=== PATIENT | female | born 2000 | race Caucasian/White ===

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

== ENCOUNTER 2022-10-11 15:57 | Emergency (ER) | payer OTHER, SELFPAY ==
--- NOTE | ~2022-10-11 | US_ITS ---
US OB <=14 wk fetus w TV 10/11/2022 18:15 Indication: Pelvic pain. Vaginal bleeding during . Procedure: High-resolution Limited obstetrical ultrasound utilizing transabdominal and transvaginal t echnique Comparison: No prior studies for comparison. Findings: No intrauterine is identified. There is a large complex area of soft tissue in th e lower uterine segment/cervical region. Uterus measures 6.5 x 4.1 x 4.3 cm. Right ovary measures 4.6 x 3.2 x 2.1 cm and contains 2 cysts, largest measuring approximately 2.2 cm. Left ovary is unremarkable measuring 3.3 x 2.5 x 1.8 cm. Normal Doppler signal in both ovaries. Impression: 1: Large complex predominantly hyperechoic area of soft tissue in the lower uterine segment/cervix. N o evidence for intrauterine . Findings suspicious for failed with partial passage of retained products of conception. Recommend follow-up with serial quantitative beta-hCG levels and ultrasound as clinically indicated. Reviewed, dictated and finalized at location A. Impression: 1: Large complex predominantly hyperechoic area of soft tissue in the lower [place] segment/cervix. No evidence for intrauterine . Findings suspiciou s for failed with partial passage of retained products of conception. Recommend follow-up with serial quantitative beta-hCG levels and ultrasound as clinically indicated.
[2022-10-11 16:02] VITALS: BP 132/72; PULSE 84; RESP 18; TEMP 36.6; O2SAT 100
--- NOTE | 2022-10-11 16:20 | ED.PREGNANCY ---
HPI - General Chief complaint: Vaginal Bleeding Stated complaint: vaginal bleeding-positive preg test Time Seen by Provider: 10/11/22 16:08 History of Present Illness HPI Narrative: Patient is a 22-year-old G0 female here for evaluation of vaginal bleeding x 3 weeks. patient states her menstrual cycle was due September 28 but did not come until September 30. Since then, patient has had continued vaginal bleeding and has been passing blood clots. States is not abnormal for her because she has a history of PCOS, but over the past several days she has had lower pelvic cramping that is more intense than usual when she started to bleed heavier. She took a home test that was positive. She has never been in the past. She took a 200mg ibuprofen without relief of her symptoms. She denies any weakness, lightheadedness, nausea, vomiting, fevers, chills, urinary symptoms. Her LEAN CONSULTANT is Dr. Hyde, follows for irregular cycles. Related Data Home Medications Medication Instructions Recorded Confirmed ergocalciferol (vitamin D2) 1,250 09/12/20 mcg (50,000 unit) capsule etonogestrel 0.12 mg-ethinyl vag ring vaginal 09/12/20 estradiol 0.015 mg/24 hr vaginal ring Allergies Allergy/AdvReac Type Severity Reaction Status Date / Time cephalexin [From Keflex] Allergy Rash Verified 10/11/22 15:58 Penicillins Allergy Unknown Verified 10/11/22 15:58 Review of Systems Review of Systems: Gen: Denies fevers or chills Eyes: Denies eye pain or visual change ENT: Denies congestion Respiratory: Denies shortness of breath or cough CV: Denies chest pain or palpitations GI: Denies abdominal pain nausea, emesis or diarrhea : Reports vaginal bleeding and pelvic pain Musculoskeletal: Denies back pain or muscle pain Neuro: Denies numbness, tingling, weakness or focal weakness Skin: Denies rash Except as documented, all other systems reviewed and negative [facility] Past Medical History Medical History C. difficile colitis Smoker Surgical History Surgical History No pertinent past surgical history Family History Family History Father Alive and well Mother Alive and well Social History Social History Smoking packs per day: 0.25 Smoking cigarettes per day: 5.0 Years smoked: 1 Smoking pack-years: 0.25 Smoking status: Current every day smoker Tobacco type: cigarettes Second hand tobacco smoke exposure: Yes Alcohol intake: current Drinks per week: 4 Alcohol use details: social Substance use: current Substance use type: marijuana Living arrangements: with family Occupation/Education: student Gender identity (if verbalized by the patient): Female Sexual Orientation (if Verbalized by the Patient): Straight or Heterosexual Exam Narrative: APPEARANCE: Well appearing, no pain in distress, well-nourished. Head: Normocephalic and atraumatic. EYES: PERRLA/EOMI, conjunctivae clear NOSE: No nasal drainage EARS: External ear normal in appearance THROAT: Oropharynx is clear. Mucous membranes are moist. NECK: Supple. No adenopathy, no masses. RESPIRATORY: Airway patent, respirations nonlabored. Clear to auscultation bilaterally, no rales, rhonchi, wheezing. CARDIOVASCULAR: Regular rate and rhythm without murmurs, rubs, or gallops. : cervix is closed, moderate amount of bright red blood in the vault with very small blood clots evacuated, no brisk bleed or hemorrhage ABDOMINAL: Normoactive bowel sounds. Soft, nontender, nondistended. No rebound tenderness or guarding. MUSCULOSKELETAL: Extremities are warm and well-perfused. Moves all extremities well. No edema. NEURO: Normal speech. No focal neurologic deficits. SKIN: Skin is warm and dry. No rashes. PSYCHIATRIC: Normal affect/mood.. Course
[2022-10-11 16:44] LABS: Basophils Absolute Auto 0.1 K/mm3 (0.0-0.1); Basophils Percent Auto 0.8 % (0.2-1.2); Eosinophils Absolute Auto 0.1 K/mm3 (0-0.3); Eosinophils Percent Auto 1.7 % (0-4.4); Hematocrit 34.6 % (37.0-47.0); Hemoglobin 11.5 g/dL (12.0-15.0); Immature Granulocyte Absolute 0.05 K/mm3 (0.00-0.031); Immature Granulocyte Percent A 0.7 % (0-0.5); Lymphocytes Absolute Auto 2.16 K/mm3 (0.9-3.2); Lymphocytes Percent Auto 29.9 % (18.3-44.2); Mean Corpuscular HGB Conc 33.2 g/dl (32-36); Mean Corpuscular Hemoglobin 30.4 pg (26-34); Mean Corpuscular Volume 91.5 fl (80-100); Mean Platelet Volume 10.2 fl (7.4-10.4); Monocytes Absolute Auto 0.6 K/mm3 (0.1-0.6); Monocytes Percent Auto 7.8 % (2.6-8.5); Neutrophils Absolute Auto 4.3 K/mm3 (1.3-6.7); Neutrophils Percent Auto 59.1 % (45.5-73.1); Platelet Count Result 279 k/mm3 (150-375); Red Blood Count 3.78 M/mm3 (4.2-5.4); Red Cell Distribution Width 13.1 % (11.5-14.5); White Blood Count 7.2 K/mm3 (4.5-10.0)
[2022-10-11 16:55] LABS: Alanine Aminotransferase 14 U/L (6-35); Alkaline Phosphatase 65 U/L (38-126); Anion Gap 6 mmol/L (8-16); Aspartate Amino Transferase 20 U/L (14-36); Bilirubin,Total 0.4 mg/dL (0.2-1.3); Blood Urea Nitrogen 9 mg/dL (7-17); Calcium 8.7 mg/dL (8.4-10.2); Carbon Dioxide 26 mmol/L (22-30); Chloride 107 mmol/L (98-107); Estimated CRCL calculation 109 ml/min; Estimated Glomerular Filt Rate > 60; Glucose 84 mg/dL (65-110); Potassium 3.6 mmol/L (3.4-5.0); Sodium 139 mmol/L (137-145)
--- NOTE | 2022-10-11 17:16 | PC.NURSE ---
xray called to notify ultrasound for possible ectopic
[2022-10-11 19:59] VITALS: BP 111/74; PULSE 78; RESP 18; O2SAT 99
== END 2022-10-11 20:04 | disposition home or self-care (01) ==
PROVIDERS: Emergency Provider Physician Assistant
DX: N93.9 Abnormal uterine and vaginal bleeding, unspecified (principal); E28.2 Polycystic ovarian syndrome; F17.210 Nicotine dependence, cigarettes, uncomplicated
CPT/HCPCS: 36415; 76801; 76817; 80053; 84702; 85025; 85461; 86850; 86900; 86901; 99284

== ENCOUNTER 2022-10-13 11:09 | Outpatient (CLI) | payer OTHER, SELFPAY | END 2022-10-13 11:10 | disposition home or self-care (01) | LOC: ANHLAB 11:10 | PROVIDERS: Visit Provider Physician Assistant | DX: O72.2 Delayed and secondary postpartum hemorrhage (principal) | CPT/HCPCS: 36415; 84702 ==